=== PATIENT | male | born 1975 | race Caucasian/White ===

== ENCOUNTER 2022-05-07 11:11 | Emergency (ER) | payer SELFPAY ==
[~2022-05-07] VITALS: Ht 172.7 cm; Wt 82.0 kg
[2022-05-07] MEDS ORDERED: GUAIFENESIN 200MG/10ML SUGAR FREE UDC PO ONE (13:15)
[2022-05-07] MEDS ORDERED: BENZ100C86 MT (14:08)
[2022-05-07 14:26] VITALS: BP 136/64
== END 2022-05-07 14:31 | disposition home or self-care (01) ==
LOC: ER 11:11
DX: B34.9 Viral infection, unspecified (principal)
CPT/HCPCS: 71045; 99283

== ENCOUNTER 2022-10-21 11:10 | Emergency (ER) | payer MEDICAID ==
[~2022-10-21] VITALS: Ht 167.6 cm; Wt 105.0 kg
[~2022-10-21 11:10] MED LIST: BENZ100C86 MT
[2022-10-21 12:14] LABS: BASOPHILS % 0.2 % (0.0-2.0); EOSINOPHILS % 0.7 % (0.0-5.0); HEMATOCRIT. 47.8 % (42.0-52.0); HEMOGLOBIN. 16.3 g/dL (14.0-18.0); LYMPHOCYTES % 12.2 % (20.0-50.0); MEAN CORPUSCULAR HEMOGLOBIN 29.1 pg (28.0-32.0); MEAN CORPUSCULAR VOLUME 85.1 fL (80.0-94.0); MEAN PLATELET VOLUME 10.6 fl (7.4-10.4); NEUTROPHILS % 82.9 % (40.0-76.0); PLATELET 151 x1000/uL (130-400); RED BLOOD CELL COUNT 5.62 mill/uL (4.7-6.1); RED CELL DISTRIBUTION WIDTH 14.4 % (11.6-14.6)
[2022-10-21 12:20] LABS: CHLORIDE 107 mEq/L (98-107)
[2022-10-21 13:01] LABS: CLARITY URINE CLEAR (CLEAR); COLOR URINE YELLOW (YELLOW); KETONES URINE NEGATIVE (NEGATIVE); LEUKOCYTE ESTERASE URINE NEGATIVE (NEGATIVE); NITRITE URINE NEGATIVE (NEGATIVE); OCCULT BLOOD URINE 1+ (NEGATIVE); PROTEIN URINE TRACE (NEGATIVE); SPECIFIC GRAVITY URINE 1.025 (1.005-1.030); UROBILINOGEN URINE 0.2 E.U./dL (0.2-1.0)
[2022-10-21] MEDS ORDERED: KETOROLAC 30MG/ML VIAL IM ONE (14:15)
[2022-10-21 15:24] VITALS: BP 142/111
[2022-10-21] MEDS ORDERED: IBUP-2029 MT (16:14)
[2022-10-21] MEDS ORDERED: METH-653 MT (16:14)
== END 2022-10-21 16:25 | disposition home or self-care (01) ==
LOC: ER 11:10
DX: R10.9 Unspecified abdominal pain (principal)
CPT/HCPCS: 36415; 76770; 80053; 81003; 85025; 96372; 99285; J1885; Z7610